=== PATIENT | male | born 1970 | race American Indian/Alaskan Native ===

== ENCOUNTER 2017-08-03 14:26 | Outpatient (CLI) | payer OTHER ==
--- NOTE | 2017-08-03 20:41 | XRay Report ---
FINAL REPORT EXAM: XR HIP 2-3V LT HISTORY: LEFT HIP PAIN TECHNIQUE: 2 coned-down views of the left hip. PRIORS: None. FINDINGS: No evidence for acute fracture or dislocation is seen. The soft tissues are unremarkable. Bony mineralization is normal. There is severe joint space narrowing with nearly ciis-du-ybyk appearance superiorly. Subchondral cyst formation and sclerosis on both sides of the joint is seen. Early flattening of the left femoral head is present. Large bony eburnation off the lateral acetabulum is present. All of these findings are consistent with severe osteoarthritis. There is an incidental well-defined sclerotic 9 mm bone island in the inferior left acetabulum. IMPRESSION: No acute soft tissue or bony abnormality noted in the left hip. Severe osteoarthritis in the left hip, especially superiorly with [id number] appearance.
== END 2017-08-03 14:27 | disposition home or self-care (01) ==
LOC: SPVIMAG 14:26
PROVIDERS: ATTEND Internal Medicine
DX: M16.12 Unilateral primary osteoarthritis, left hip (principal); M25.852 Other specified joint disorders, left hip